=== PATIENT | female | born 1955 | race Caucasian/White ===

== ENCOUNTER 2021-04-17 13:26 | Outpatient (CLI) | payer MEDICARE, SELFPAY ==
--- NOTE | 2021-04-17 13:45 | MR_ITS ---
WS: [id number] MRI LEFT KNEE HISTORY: M25.562 - Pain in left knee COMPARISON: Radiograph 03/18/2021 Anterior cruciate ligament: Mild intrasubstance degeneration and variable signal. No tear. Posterior cruciate ligament: Intact. Medial collateral ligament: Intact. Posterior lateral corner structures: Intact. Medial menisci: Mild intrasubstance degeneration in the posterior horn. Signal does not extend to the articular surfaces. Lateral meniscus: Intact. Normal signal, size and shape. Extensor mechanism: Distal quadriceps tendon and patellar tendons are intact. Fluid and soft tissue: No joint effusion. Small Mann's cyst. Osseous and articular structures: Patellofemoral compartment: Normal. Medial compartment: Very slight surface fraying of the cartilage. Contusion type injury along the wayne ghtbearing surface including the femoral condyle and tibial plateau surface towards the intercondylar notch. No underlying marrow edema. Lateral compartment: Superficial surface fraying of the cartilage of the tibial plateau and femoral c ondyle. No marrow edema. There is a tiny subchondral cyst involving the proximal fibular head measuring 4.2 mm. MR/MR knee LT con* [id number] IMPRESSION: 1. Mild intrasubstance degeneration in the ACL and posterior horn medial menis cus. No tears. 2. Subchondral cyst involving the fibular head measures 4.2 mm. 3. Very minimal superficial fraying involving the cartilage of the medial and lateral tibial plateaus and femoral condyles.
== END 2021-04-17 13:27 | disposition home or self-care (01) ==
LOC: RADSHAW 13:33
PROVIDERS: Visit Provider Orthopaedic Surgery
DX: M25.562 Pain in left knee (principal)
CPT/HCPCS: 73721

== ENCOUNTER → 2021-05-20 07:48 | Outpatient (BNVA) | payer MEDICARE, SELFPAY | PROVIDERS: PCP Internal Medicine; Visit Provider Specialist | DX: G62.89 Other specified polyneuropathies (principal); M25.562 Pain in left knee; F17.200 Nicotine dependence, unspecified, uncomplicated | CPT/HCPCS: 95885; 95886; 95908; 99202 ==

== ENCOUNTER 2021-06-27 13:25 | Outpatient (CLI) | payer MEDICARE, SELFPAY ==
--- NOTE | 2021-06-27 13:45 | MR_ITS ---
WS: [id number] MRI LUMBAR SPINE NONCONTRAST HISTORY: G58.9 - Mononeuropathy, unspecified COMPARISON: None available. TECHNIQUE: Sagittal and axial multisequence imaging is submitted. T11 hemangioma. L1 retrolisthesis by 3.6 mm. L3 anterolisthesis by 4.6 mm and L4 anterolisthesis by 5.0 mm. Reactive marrow changes at the L5-S1 level. Disc space narrowing and mild desiccation throughout but most significant at L5-S1. Conus terminates normally at L1. L1-L2: Moderate annular disc bulging. Disc spaces and ventricles thecal sac with very mild encroachme nt upon the L2 nerve roots and foramen. Very mild subarticular narrowing. L2-L3: Moderate annular disc bulging with mild ligamentum flavum hypertrophy and facet arthritis. Mil d bilateral foraminal stenosis predominantly due to disc disease. L3-L4: Moderate annular disc bulging with ligamentum flavum hypertrophy and facet arthritis. Small LE FT paracentral disc protrusion which does abut and slightly displaced the LEFT L4 nerve root. Disc an d mild facet arthritis causing mild bilateral foraminal narrowing. There is also mild subarticular re cess narrowing. L4-L5: Moderate diffuse annular disc bulging slightly asymmetric to the LEFT. Severe ligamentum flavu m arthritis and facet arthropathy. Fluid in the facet joints bilaterally. Moderate RIGHT and severe L EFT foraminal stenosis and moderate central and lateral recess stenosis. L5-S1: Diffuse annular disc bulging with a central disc protrusion contacting the ventral thecal sac. Moderate ligamentum flavum hypertrophy and facet hypertrophy. Severe LEFT and moderate RIGHT foramin al stenosis. Paravertebral soft tissues are normal. MR/MR lumbar spine wo con* [id number] IMPRESSION: 1. L3 and L4 anterolisthesis by 4.6 and 5.0 mm respectively. 2. Severe degenerative disc disease at L5-S1. 3. Moderate central, bilateral lateral recess and RIGHT foraminal stenosis wit h severe LEFT foraminal stenosis at L4-5 due to combination of factors. 4. Severe LEFT and moderate RIGHT foraminal stenosis at L5-S1 as described abo ve. 5. Mild encroachment upon the L2 nerve roots at L1-2 and mild subarticular rec ess narrowing. 6. LEFT paracentral disc protrusion at L3-4 contacts and slightly displaces th e LEFT L4 nerve root along with mild bilateral foraminal and subarticular reces s narrowing. 7. Moderate facet joint arthritis bilaterally at L4-5 and L5-S1.
== END 2021-06-27 13:26 | disposition home or self-care (01) ==
LOC: RADSHAW 13:28
PROVIDERS: PCP Internal Medicine; Visit Provider Orthopaedic Surgery
DX: G58.9 Mononeuropathy, unspecified (principal); M47.816 Spondylosis without myelopathy or radiculopathy, lumbar region; M51.26 Other intervertebral disc displacement, lumbar region; M51.37 Other intervertebral disc degeneration, lumbosacral region; M48.061 Spinal stenosis, lumbar region without neurogenic claudication; M48.07 Spinal stenosis, lumbosacral region
CPT/HCPCS: 72148

== ENCOUNTER → 2021-07-18 12:55 | Outpatient (BNVA) | payer MEDICARE, SELFPAY | PROVIDERS: PCP Internal Medicine; Referring Provider Orthopaedic Surgery; Visit Provider Orthopaedic Surgery | DX: M47.816 Spondylosis without myelopathy or radiculopathy, lumbar region (principal); M54.5 Low back pain | CPT/HCPCS: 72110 ==

== ENCOUNTER → 2021-07-29 10:29 | Outpatient (BNVA) | payer MEDICARE, SELFPAY | PROVIDERS: PCP Internal Medicine; Referring Provider Orthopaedic Surgery; Visit Provider Anesthesiology Pain Medicine | DX: G89.29 Other chronic pain (principal); M48.062 Spinal stenosis, lumbar region with neurogenic claudication; M47.816 Spondylosis without myelopathy or radiculopathy, lumbar region; M46.00 Spinal enthesopathy, site unspecified; M79.605 Pain in left leg; M79.604 Pain in right leg; Z79.899 Other long term (current) drug therapy | CPT/HCPCS: 99204 ==